=== PATIENT | female | born 1975 | race Caucasian/White ===

== ENCOUNTER 2023-04-08 07:48 | Emergency (ER) | payer OTHER ==
[2023-04-08 08:20] VITALS: O2SAT 96
--- NOTE | 2023-04-08 08:20 | ERPHSYRPT ---
- History of Present Illness Time Seen by Provider: 04/08/23 08:15 Source: patient Exam Limitations: no limitations Physician History: 48 years old female presented in the ER with chief complaint of fall yesterday. Patient reports she was changing computer station, possibly tripped and fell forward, hit her both knees, hands and also chin. Patient reports moderate intensity pain in the neck, both shoulders hands and knee but more on the right shoulder and right hand. Was able to get up and ambulate without any limitation. Patient reports popping sensation in the right shoulder and persistent pain in the right hand. No loss of consciousness, did not hit her h ead. Denies any chest pain palpitations or shortness of breath. No headache. No numbness tingling or focal weakness. No injury anywhere else. She has taken ibuprofen x 2 since yesterday with no significant relief. Allergies/Adverse Reactions: codeine Adverse Reaction (Verified 04/08/23 08:04) Itching Home Medications: Atorvastatin Calcium [Lipitor] 1 tab PO HS 04/08/23 [History] Clonazepam [Klonopin] 1 tab PO HS 04/08/23 [History] Empagliflozin [Jardiance] 25 mg PO DAILY 04/08/23 [History] Metoprolol Tartrate 1 tab PO TID 04/08/23 [History] Omeprazole 1 cap PO DAILY 04/08/23 [History] Sertraline HCl 50 mg [Zoloft 50 mg Tablet] 100 mg PO HS 04/08/23 [History] - Review of Systems Constitutional: No Symptoms Eyes: No Symptoms Ears, Nose, & Throat: No Symptoms Respiratory: No Symptoms Cardiac: No Symptoms Abdominal/Gastrointestinal: No Symptoms Genitourinary Symptoms: No Symptoms Musculoskeletal: Neck Pain, Fall, Injury, Joint Pain Skin: No Symptoms Neurological: No Symptoms Psychological: No Symptoms Endocrine: No Symptoms Hematologic/Lymphatic: No Symptoms - Nursing Vital Signs Nursing Vital Signs: Initial Vital Signs Temperature 98 F 04/08/23 07:49 Pulse Rate 64 04/08/23 07:49 Respiratory Rate 16 04/08/23 07:49 Blood Pressure 143/80 04/08/23 07:49 O2 Sat by Pulse Oximetry 96 04/08/23 07:49 Pain Scale Pain Intensity 8 - Agnes Coma Score Best Eye Response (Stanwood): (4) open spontaneously Best Verbal Response ([place]): (5) oriented Best Motor Response (Agnes): (6) obeys commands [place] Total: 15 - Physical Exam General Appearance: no apparent distress, alert Head Injury: no evidence of injury Eye Exam: PERRL/EOMI, eyes nml inspection ENT Exam: airway nml, No evidence of ENT injury, No dental injury Neck Exam: supple, trachea midline, full range of motion, normal alignment Respiratory/Chest Exam: normal breath sounds, respiratory distress, No chest tenderness Cardiovascular Exam: normal heart sounds, regular rate/rhythm Back Exam: normal inspection, normal range of motion Extremity Exam: normal inspection, normal range of motion, tenderness (Right hand on the medial side, mild knee with motion. 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, normal mood/affect, nml cerebellar function, nml station & gait, sensation nml, No motor deficits Skin Exam: normal color SpO2 Interpretation: normal SpO2: 96 O2 Delivery: Room Air Ordered Tests: Active Orders 24 hr Category Date Time Status CERVICAL SPINE WO CONTRAST [CT] Stat Exams 04/08/23 08:16 Completed HAND (MINIMUM 3 VIEWS) Stat Exams 04/08/23 08:17 Completed KNEE (3 VIEWS) Stat Exams 04/08/23 08:44 Completed SHOULDER Stat Exams 04/08/23 08:16 Completed - Progress Progress: improved, pain not gone completely Progress Note: 04/08/23 09:51 48 years old is evaluated in the ER for ground-level fall yesterday while at work where she tripped. She stopped herself with both knees and hands. Complaining of pain in the hand specially in the right hand, right shoulder and both knees more on the left and also pain in the neck as she did hit the chin as well. She has small tenderness in the cervical spine but intact range of motion. Obtained CT cervical spine which is negative for acute fracture or subluxation. X-rays right hand, right shoulder and the left knee are negative for acute fracture dislocation. I believe patient has contusion of the hand and knee and some strain on the right shoulder. She has taken ibuprofen which she brought with her here in the ER and her pain is a little better. Patient is ambulating in the ER without any limitations. Nonfocal neuroexam. I believe patient has some cervical strain as well, we will give her muscle relaxants along with NSAIDs to go home and outpatient follow-up recommended. Discussed signs symptoms of worsening needing return to ER which she seems understanding. Stable for discharge. Counseled pt/family regarding: diagnosis, need for follow-up, rad results Medical Desision Making - Diagnostic Testing Radiological Interpretation: Reviewed by me - Departure Departure Disposition: Home Clinical Impression: Cervical strain, acute, Shoulder strain, Contusion, Fall Condition: Stable Critical Care Time: No Referrals: BERTHA EASLEY [Primary Care Provider] - Follow up with PCP 1 day Instructions: Contusion (DC) Additional Instructions: Take Tylenol/ibuprofen along with muscle relaxants as needed. Follow-up with your primary care for reevaluation. Intermittent ice application. Return to ER for intractable pain in the neck, numbness tingling weakness of extremities or swelling of joints etc. Prescriptions: Ibuprofen 600 mg PO Q6HPRN PRN 10 Days #20 tablet PRN Reason: Pain Cyclobenzaprine HCl 10 mg [Flexeril 10 MG] 10 mg PO TID #15 tablet
[2023-04-08 08:25] VITALS: TEMP 98
--- NOTE | 2023-04-08 09:06 | XRAY ---
Indication: Pain following fall. Multiple contiguous axial images obtained through the cervical spine. Sagittal and coronal reformatted images obtained. Comparison: None Axial images negative for acute fracture, suspicious bony lesions, or spinal canal stenosis. Incidental mild bilateral C4-C6 degenerative facet hypertrophy and tiny accessory ossicle tip of odontoid process. Sagittal and coronal reformatted images demonstrates normal alignment with vertebral body heights/disc spaces maintained.. No acute compression fracture, subluxation, or jumped facet. Normal-appearing craniocervical junction. Visualized noncontrasted soft tissues including lung apices and base of brain unremarkable. Impression: C4-C6 degenerative facet hypertrophy. Remaining CT cervical spine is normal.
--- NOTE | 2023-04-08 09:20 | XRAY ---
Indication: Pain following fall. Comparison: None 3 view right hand obtained. No bony, articular, or soft tissue abnormalities.
--- NOTE | 2023-04-08 09:20 | XRAY ---
Indication: Pain following fall. Comparison: None 3 view left knee obtained. No bony, articular, or soft tissue abnormalities.
--- NOTE | 2023-04-08 09:20 | XRAY ---
Indication: Pain following fall. Comparison: None 3 view right shoulder obtained. No bony, articular, or soft tissue abnormalities.
[2023-04-08 10:11] VITALS: BP 117/71; PULSE 78; RESP 16
== END 2023-04-08 10:11 | disposition home or self-care (01) ==
LOC: ED 07:48
DX: S46.911A Strain of unspecified muscle, fascia and tendon at shoulder and upper arm level, right arm, initial encounter (principal); S16.1XXA Strain of muscle, fascia and tendon at neck level, initial encounter; S60.221A Contusion of right hand, initial encounter; W01.0XXA Fall on same level from slipping, tripping and stumbling without subsequent striking against object, initial encounter; Y92.531 Health care provider office as the place of occurrence of the external cause; Y99.0 Civilian activity done for income or pay; M25.512 Pain in left shoulder; M25.561 Pain in right knee; M25.562 Pain in left knee; Z79.84 Long term (current) use of oral hypoglycemic drugs; Z79.899 Other long term (current) drug therapy
CPT/HCPCS: 72125; 73030; 73130; 73562; 99283